=== PATIENT | male | born 1950 | race Caucasian/White ===

== ENCOUNTER 2017-05-26 09:13 | Day surgery (SDC) | payer OTHER, MEDICARE ==
[~2017-05-26] VITALS: Ht 172.7 cm; Wt 133.6 kg
[~2017-05-26 09:13] MED LIST: ALTACE 10MG TAB10 MG PO; ASPIRIN E.C. 8181 MG PO; GLUCOPHAGE XR500 M1 PO; HCTZ 25MG TAB25 MG PO; JANUVIA 100MG100 MG PO; LASIX 20MG TABL20 MG PO; LIPITOR 40MG TA40 MG PO; MULTIPLE VITAMI1 CAP PO; PRIL40 PO; TOPROL XL100 MG PO
== END 2017-05-26 09:55 | disposition home or self-care (01) ==
LOC: COL.CAR 09:13
DX: I25.10 Atherosclerotic heart disease of native coronary artery without angina pectoris (principal); Z53.29 Procedure and treatment not carried out because of patient's decision for other reasons

== ENCOUNTER 2017-06-30 07:44 | Day surgery (SDC) | payer OTHER, MEDICARE ==
[2017-06-30] VITALS (9 sets, daily range): BP systolic 120–164; BP diastolic 51–92; PULSE 61–77; TEMP 97.7
[~2017-06-30] VITALS: Ht 172.7 cm; Wt 133.6 kg
[~2017-06-30 07:44] MED LIST changes: -GLUCOPHAGE XR500 M1 PO; +GLUCOPHAGE1000 MG PO; -LIPITOR 40MG TA40 MG PO; +LIPITOR 80MG80 MG PO; -PRIL40 PO; +PRILOSEC 20MG20 MG PO
[2017-06-30 08:27] LABS: HEMATOCRIT 38.8 % (42.0-52.0); HEMOGLOBIN 12.6 g/dl (13.5-18.0); MEAN CELL VOLUME 87 fl (80.0-100.0); MEAN CORPUSCULAR HEMOGLOBIN 28 pg (27.0-31.0); MEAN CORPUSCULAR HGB CONC 33 g/dl (33.0-37.0); MEAN PLATELET VOLUME 10.3 fl (7.4-10.4); PLATELET COUNT 213 K/mm3 (130-400); RED BLOOD COUNT 4.48 M/mm3 (4.20-5.60); REDCELL DISTRIBUTION WIDTH-CV 15.6 % (11.5-14.5); WHITE BLOOD COUNT 10.1 K/mm3 (4.8-10.8)
[2017-06-30] MEDS ORDERED: ALDACTONE 25MG25 M1 PO (08:27)
[2017-06-30] MEDS ORDERED: PRINIVIL40 MG PO (08:28)
[2017-06-30] MEDS ORDERED: EPA FISH OIL1 SGL PO (08:29)
[2017-06-30] MEDS ORDERED: ONGLYZA5 MG PO (08:30)
[2017-06-30 08:32] LABS: INR 1.2 (0.8-3.0)
[2017-06-30] MEDS ORDERED: COLACE 100100 MG/CAP PO (08:36)
[2017-06-30] MEDS ORDERED: GLUCOTROL10 MG PO (08:36)
[2017-06-30 08:58] LABS: CALCIUM 9.2 mg/dL (8.4-10.2); CREATININE, serum 0.87 mg/dL (0.66-1.25); POTASSIUM 3.9 mmol/L (3.4-5.0)
== END 2017-06-30 15:00 | disposition home or self-care (01) ==
LOC: COL.CAR 07:44
PROVIDERS: Internal Medicine Interventional Cardiology
DX: I25.10 Atherosclerotic heart disease of native coronary artery without angina pectoris (principal); Z95.1 Presence of aortocoronary bypass graft; E11.9 Type 2 diabetes mellitus without complications; G47.33 Obstructive sleep apnea (adult) (pediatric); I87.2 Venous insufficiency (chronic) (peripheral); R94.39 Abnormal result of other cardiovascular function study; Z87.891 Personal history of nicotine dependence
CPT/HCPCS: C1760; C1769; C1894; J2250; J3010; Q9967

== ENCOUNTER 2021-08-06 08:46 | Day surgery (SDC) | payer MEDICARE ==
[2021-08-06] VITALS (11 sets, daily range): BP systolic 110–132; BP diastolic 49–81; PULSE 58–66; TEMP 98.3
[~2021-08-06] VITALS: Ht 172.8 cm; Wt 131.6 kg
[~2021-08-06 08:46] MED LIST changes: +ALDACTONE 25MG25 M1 PO; +COLACE 100100 MG/CAP PO; +EPA FISH OIL1 SGL PO; +GLUCOTROL10 MG PO; +ONGLYZA5 MG PO; +PRINIVIL40 MG PO
[2021-08-06 09:34] LABS: HEMATOCRIT 38.3 % (42.0-52.0); HEMOGLOBIN 12.5 g/dl (13.5-18.0); MEAN CELL VOLUME 88 fl (80.0-100.0); MEAN CORPUSCULAR HEMOGLOBIN 29 pg (27.0-31.0); MEAN CORPUSCULAR HGB CONC 33 g/dl (33.0-37.0); PLATELET COUNT 204 K/mm3 (130-400); RED BLOOD COUNT 4.35 M/mm3 (4.20-5.60); REDCELL DISTRIBUTION WIDTH-CV 14.8 % (11.5-14.5)
[2021-08-06 09:40] LABS: INR 1.2 (0.8-3.0)
[2021-08-06 09:43] LABS: PARTIAL THROMBOPLASTIN TIME 33.9 SECONDS (26.0-37.0)
[2021-08-06 09:49] LABS: CALCIUM 9.4 mg/dL (8.4-10.2); CREATININE, serum 1.34 mg/dL (0.72-1.25); POTASSIUM 4.1 mmol/L (3.5-4.5)
[2021-08-06] MEDS ORDERED: TOPROL XL 50MG50 MG PO (10:11)
[2021-08-06] MEDS ORDERED: GLUCOTROL XL10 MG PO (10:12)
[2021-08-06] MEDS ORDERED: NESINA25 PO (10:13)
--- NOTE | 2021-08-06 11:07 | NUR ---
SEE MERGE DOCUMENTATION FOR MEDICATION ADMINISTRATION AND INTRA/POST PROCEDURE SEDATION ASSESSMENTS.
--- NOTE | 2021-08-06 11:57 | NUR ---
Pt returned from procedure,report from Carroll Severino.
--- NOTE | 2021-08-06 14:59 | NUR ---
Verified with ALVAREZ Mead that pt should recover/remain on bedrest 2 hours prior to discharge. Pt is assisted up to restroom following this time period with steady gait. Rt groin site remains soft to palpation, and dressing remains clean, dry and intact. INT DC'd with catheter intact. DC instructions reviewed with pt and , both express understanding. Pt is assisted out to 's car by wheelchair.
== END 2021-08-06 15:01 | disposition home or self-care (01) ==
LOC: COL.CAR 08:46
PROVIDERS: Internal Medicine Interventional Cardiology; Nurse Practitioner
DX: I25.10 Atherosclerotic heart disease of native coronary artery without angina pectoris (principal); I25.2 Old myocardial infarction; I10 Essential (primary) hypertension; E11.65 Type 2 diabetes mellitus with hyperglycemia; G47.30 Sleep apnea, unspecified; E78.5 Hyperlipidemia, unspecified; M47.812 Spondylosis without myelopathy or radiculopathy, cervical region; M47.819 Spondylosis without myelopathy or radiculopathy, site unspecified; E66.9 Obesity, unspecified; Z68.41 Body mass index [BMI] 40.0-44.9, adult; Z95.1 Presence of aortocoronary bypass graft; Z79.84 Long term (current) use of oral hypoglycemic drugs; Z79.82 Long term (current) use of aspirin; Z79.1 Long term (current) use of non-steroidal anti-inflammatories (NSAID); Z79.899 Other long term (current) drug therapy
CPT/HCPCS: J1644; J2250; J3010; Q9967